=== PATIENT | female | born 1960 | race Two or more races ===

== ENCOUNTER → 2024-09-20 | Outpatient (CLI) | payer MEDICAID, SELFPAY ==
--- NOTE | 2024-09-20 08:00 | XR_ITS ---
EXAMINATION: PET/CT FUSION SKULL TO THIGH EXAM DATE AND TIME: September 20, 2024 0846 hours Comparison June 14, 2024 INDICATIONS: Diagnosis follicular lymphoma grade 1 head and neck, weakly hypermetabolic periaortic lymph nodes, the largest [address] scan June 14, 2024 CTDI:vol (mGy) 6.67 DLP: (mGycm) 609.53 PROCEDURE: 16.6 mCi FDG was administered intravenously To allow for distribution and uptake of radiotracer, the patient was allowed to rest quietly in a shielded room. Imaging was performed on an integrated 16-slice PET/CT scanner, with scanning from the skull base to the mid thigh. Serum blood glucose at the time of the injection was measured 120 mg/dL. CT scanning was performed without oral or intravenous contrast material. FINDINGS: Head and Neck: No hypermetabolic neck lymphadenopathy Chest: Stable non hypermetabolic high left periaortic lymph nodes compared to June 14, 2024 Abdomen and Pelvis: Stable non hypermetabolic para-aortic abdominal lymphadenopathy. Severely scarred atrophic left kidney Musculoskeletal: Marrow uptake is within normal range. IMPRESSION: Stable non hypermetabolic high left periaortic mediastinal lymph nodes compared with June 14, 2024 Stable non hypermetabolic para-aortic abdominal lymphadenopathy compared with June 14, 2024 No interval lymphadenopathy
== END | disposition home or self-care (01) ==
LOC: CDIM 07:42
PROVIDERS: PCP Physician Assistant; Referring Provider Internal Medicine Hematology & Oncology; Visit Provider Internal Medicine Hematology & Oncology
DX: R59.0 Localized enlarged lymph nodes (principal); C82.01 Follicular lymphoma grade I, lymph nodes of head, face, and neck
CPT/HCPCS: 78815; A9552

== ENCOUNTER 2024-10-15 13:36 | Outpatient (RCR) | payer MEDICAID, SELFPAY ==
--- NOTE | 2024-10-29 01:09 | CTCFLWUP_ITS ---
Patient: ALIA BARRIOS : 1960 Page 7 of 8 FOLLOW UP NOTE DATE OF SERVICE: 10/15/2024 NAME: ALIA BARRIOS ACCOUNT: [id number] : 1960 AGE: 63 INTERVAL HISTORY: ONCOLOGY HISTORY: DIAGNOSIS: Follicular lymphoma grade I, nodes of head, face, and neck [ICD10] C82.01 DATE OF DIAGNOSIS: 12/21/2023 STAGE/TNM: Low grade follicular lymphoma TREATMENT HISTORY: Care?Plan Start?Date Cycle Day Intent Rituxan?375?+?Bendamustine?90?Leah 03/28/2024 1 28 Palliative HISTORY OF PRESENT ILLNESS: Alia Barrios is a 63-year-old ENG speaking female with following oncology history . Ms. Barrios started noticing a small lump growing on the right side of the neck about 8 months a go. She also noticed about 22 pound weight loss in the past 3 months. She also complains of occasio nal night sweats. Denies any fevers. Complains of discomfort in the right side of the neck. Does h ave right lower quadrant discomfort. Recently she had fine-needle aspiration on 12/21/2023 02/13/2024: PET/CT scan? 02/14/2024: CT scan of the chest abdomen and pelvis with IV contrast done 02/23/2024: Hepatitis panel? 02/27/2024: Hepatitis B viral load 03/13/2024: Ms. Barrios is started on Entecavir 0.5 mg p.o. daily 03/28/2024: Ms. Barrios received first cycle of Bendamustine and rituximab 06/14/2024: PET/CT scan? 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 allopurinol - 300 mg 1 tab po q daily 2. docusate sodium - 100 mg 1 tab As needed 3. entecavir - 0.5 mg 1 tab Daily 4. hydrocodone-acetaminophen - 5-325 mg 1 tab twice daily every 12 hrs 5. verapamiL - 80 mg 1 tab Daily 6. Vicodin - 5-500 mg 1 tab every 12 hrs 7. Zofran - 8 mg 1 tab Three times a day Medications Last Reconciled by Diana Page MA on 10/15/2024 ALLERGIES: No Known Allergies; No Known Drug Allergies REVIEW OF SYSTEMS: A complete 14-point review of systems was performed and is negative except as noted in interval histo ry. PHYSICAL EXAMINATION: VITAL SIGNS: Temperature?97.6, B/P?140/79, Oxygen?Saturation?98% Weight?148?lbs PAIN: 2 - Mild pain ECOG Performance Status: 0 - Asymptomatic and fully active GENERAL APPEARANCE: Appears well, in no apparent distress, appropriately interactive. HEENT: Normocephalic, no temporal wasting, normal conjunctiva, no scleral icterus, normal hearing, li ps without lesions, neck normal range of motion. CARDIOVASCULAR: Not assessed. PULMONARY: Normal respiratory effort, no respiratory distress or use of accessory muscles, speaking i n full sentences, no tachypnea. EXTREMITIES: No pedal edema or cyanosis. SKIN: Normal skin appearance. NEUROLOGIC: Alert and oriented x4. PSHYCHIATRIC: Appropriate affect, mood normal, behavior normal, intact thought and speech. LABORATORY DATA: I have personally reviewed and interpreted each of the patient?s relevant lab tests, abnormal finding s are below: Date 08/13/24 ??GLUCOSE,RANDOM?(mg/dL) 116?H ??BLOOD?UREA?NITROGEN?(mg/dL) 11 ??CREATININE?(mg/dL) 0.80 ??SODIUM?(mmol/L) 139 ??POTASSIUM?(mmol/L) 3.6 ??CHLORIDE?(mmol/L) 103 ??CrCl?(CandG)?(ml/min) 75.60 ??AST/SGOT?(Unit/L) 38?H ??ALT/SGPT?(Unit/L) 20 ??ALKALINE?PHOSPHATASE?(Unit/L) 117?H ??BILIRUBIN,?TOTAL?(mg/dL) 0.6 ??PROTEIN?TOTAL?(gm/dl) 7.1 ??ALBUMIN,?SERUM?(gm/dl) 4.4 ??GLOBULIN?(gm/dl) 2.7 ??ALBUMIN/GLOBULIN?RATIO 1.6 ??CALCIUM,?SERUM?(mg/dL) 9.4 ??CALCIUM?SERUM?(CORRECTED)?(mg/dL) 9.4 ASSESSMENT/PLAN: Follicular lymphoma Patient was very symptomatic with 30 pound weight loss and lymphadenopathy She will be getting her last dose of Bendamustine rituximab Plan is to continue rituximab every 2 months for total of [address] scan already ordered Advised patient to completed at the end of August and see me in September Sophie is started on Entecavir 0.5 mg p.o. daily (03/13/2024) and advised to continue Ms. Barrios received her first cycle of Bendamustine and rituximab on 03/28/2024. Patient also have hypertension which is well-controlled advised to follow-up with primary care Will proceed with the last chemotherapy and PET CT scan advised after 1 month of chemo.. 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 I spent a total of 50 minutes on this patient?s care on the day of their visit excluding time spent related to any bi lled procedures. This time includes time spent with the patient as well as time spent documenting in the medical record, reviewing patients records and tests, obtaining history, placing orders, communi cating with other healthcare professionals, counseling the patient, family or caregiver, and/or care coordination for the diagnoses above. Electronically Signed by: Carmine Mejia MD T: 1:07 AM CC: PCP: Alyse Cook Referring: Arzaga, Alyse B This document was completed utilizing speech recognition software. Grammatical errors, random word in sertions, pronoun errors, and incomplete sentences are an occasional consequence of this system due t o software limitations, ambient noise, and hardware issues. Any formal questions or concerns about th e content, text or information contained within the body of this dictation should be directly address ed to the provider for clarification.
== END 2024-10-30 23:59 | disposition home or self-care (01) ==
LOC: SCTC 13:36
PROVIDERS: PCP Physician Assistant; Referring Provider Physician Assistant; Visit Provider Internal Medicine Hematology & Oncology
DX: C82.01 Follicular lymphoma grade I, lymph nodes of head, face, and neck (principal)
CPT/HCPCS: 99213; G0463

== ENCOUNTER 2024-11-26 07:36 | Outpatient (RCR) | payer MEDICAID, SELFPAY ==
[2024-11-23 11:55] LABS: Basophils % (Auto) 1 % (0-2.5); Eosinophils # (Auto) 0.1 Thou/mm3 (0.0-0.5); Eosinophils % (Auto) 3 % (0-10); Hematocrit 37.4 % (36.0-46.0); Hemoglobin 12.8 g/dL (12.0-16.0); Immature Granulocytes % (Auto) 7 % (0-0); Immature Granulocytes Auto 0.16 Thou/mm3 (0.00-0.00); Lymphocytes # (Auto) 0.3 Thou/mm3 (1.0-4.8); Lymphocytes % (Auto) 13 % (10-50); Mean Corpuscular HGB Conc 34.2 g/dl (31.0-37.0); Mean Corpuscular Hemoglobin 28.1 pg (25.0-35.0); Mean Corpuscular Volume 82 fL (80-100); Monocytes # (Auto) 0.3 Thou/mm3 (0.0-0.8); Monocytes % (Auto) 14 % (0-12); Neutrophils # (Auto) 1.5 Thou/mm3 (1.8-7.7); Neutrophils % (Auto) 63 % (37-80); Nucleated Red Blood Cell % 0 /100 WBC (0); Platelet Count 140 Thou/mm3 (140-440); RDW Standard Deviation 42.8 fL (36.4-46.3); Red Blood Count 4.55 Miln/mm3 (4.00-5.20)
[2024-11-23 12:15] LABS: Alanine Aminotransferase 30 U/L (10-49); Albumin, Serum 4.6 gm/dL (3.4-4.8); Albumin/Globulin Ratio 1.8 (1.2-2.2); Alkaline Phosphatase 119 U/L (46-116); Anion Gap 11 (7-16); Aspartate Amino Transferase 45 U/L (0-34); BUN/Creatinine Ratio 19 Ratio (12-20); Bilirubin,Total 0.7 mg/dL (0.3-1.2); Blood Urea Nitrogen 15 mg/dL (9-23); Calcium 9.6 mg/dL (8.3-10.6); Calcium (Corrected) 9.6 mg/dL (8.5-10.1); Carbon Dioxide 25.8 mMol/L (20.0-31.0); Chloride 106 mMol/L (98-107); Creatinine (Component) 0.8 mg/dL (0.6-1.3); Globulin 2.5 gm/dL (2.3-3.5); Glucose 121 mg/dL (74-106); Osmolality,Calculated 286 (275-295); Potassium 3.7 mMol/L (3.4-5.1); Sodium 143 mMol/L (136-145); Total Protein 7.1 gm/dL (5.7-8.2); eGFR > 60 See Note
[2024-11-23 12:49] LABS: White Blood Count 2.4 Thou/mm3 (3.6-11.0)
== END 2024-11-30 23:59 | disposition home or self-care (01) ==
LOC: SCTC 07:36
PROVIDERS: PCP Family Medicine; Referring Provider Family Medicine; Visit Provider Internal Medicine Hematology & Oncology
DX: Z51.11 Encounter for antineoplastic chemotherapy (principal); C82.01 Follicular lymphoma grade I, lymph nodes of head, face, and neck; R63.4 Abnormal weight loss; Z68.27 Body mass index [BMI] 27.0-27.9, adult
CPT/HCPCS: 36591; 80053; 85025; 96413; 96415; A4216; J1642; J7050; Q5115; A9270

== ENCOUNTER 2024-12-26 07:35 | Outpatient (RCR) | payer MEDICAID, SELFPAY ==
[2024-12-12 15:48] LABS: Basophils % (Auto) 1 % (0-2.5); Eosinophils # (Auto) 0.1 Thou/mm3 (0.0-0.5); Eosinophils % (Auto) 4 % (0-10); Hematocrit 35.9 % (36.0-46.0); Hemoglobin 12.6 g/dL (12.0-16.0); Immature Granulocytes % (Auto) 1 % (0-0); Immature Granulocytes Auto 0.03 Thou/mm3 (0.00-0.00); Lymphocytes # (Auto) 0.3 Thou/mm3 (1.0-4.8); Lymphocytes % (Auto) 12 % (10-50); Mean Corpuscular HGB Conc 35.1 g/dl (31.0-37.0); Mean Corpuscular Hemoglobin 28.7 pg (25.0-35.0); Mean Corpuscular Volume 82 fL (80-100); Monocytes # (Auto) 0.4 Thou/mm3 (0.0-0.8); Monocytes % (Auto) 13 % (0-12); Neutrophils # (Auto) 1.9 Thou/mm3 (1.8-7.7); Neutrophils % (Auto) 70 % (37-80); Nucleated Red Blood Cell % 0 /100 WBC (0); Platelet Count 147 Thou/mm3 (140-440); RDW Standard Deviation 41.2 fL (36.4-46.3); Red Blood Count 4.39 Miln/mm3 (4.00-5.20)
[2024-12-12 16:08] LABS: Uric Acid 5.2 mg/dL (3.1-7.8)
[2024-12-12 16:16] LABS: Alanine Aminotransferase 28 U/L (10-49); Albumin, Serum 4.1 gm/dL (3.4-4.8); Albumin/Globulin Ratio 1.6 (1.2-2.2); Alkaline Phosphatase 119 U/L (46-116); Anion Gap 6 (7-16); Aspartate Amino Transferase 32 U/L (0-34); BUN/Creatinine Ratio 19 Ratio (12-20); Bilirubin,Total 0.5 mg/dL (0.3-1.2); Blood Urea Nitrogen 17 mg/dL (9-23); Calcium 9.3 mg/dL (8.3-10.6); Calcium (Corrected) 9.3 mg/dL (8.5-10.1); Chloride 107 mMol/L (98-107); Creatinine (Component) 0.9 mg/dL (0.6-1.3); Globulin 2.5 gm/dL (2.3-3.5); Glucose 182 mg/dL (74-106); Osmolality,Calculated 285 (275-295); Potassium 3.9 mMol/L (3.4-5.1); Sodium 140 mMol/L (136-145); Total Protein 6.6 gm/dL (5.7-8.2); eGFR > 60 See Note
[2024-12-12 16:24] LABS: White Blood Count 2.8 Thou/mm3 (3.6-11.0)
--- NOTE | 2024-12-30 15:45 | CTCFLWUP_ITS ---
Patient: ALIA BARRIOS : 1960 Page 7 of 8 FOLLOW UP NOTE DATE OF SERVICE: 12/13/2024 NAME: ALIA BARRIOS ACCOUNT: [id number] : 1960 AGE: 64 INTERVAL HISTORY: ONCOLOGY HISTORY: DIAGNOSIS: Follicular lymphoma grade I, nodes of head, face, and neck [ICD10] C82.01 DATE OF DIAGNOSIS: 12/21/2023 STAGE/TNM: Low grade follicular lymphoma TREATMENT HISTORY: Care?Plan Start?Date Cycle Day Intent Rituxan?375?+?Bendamustine?90?Leah 03/28/2024 1 28 Palliative Rituximab?375mg/m*2?maint?q?2month 11/26/2024 1 60 Maintenance HISTORY OF PRESENT ILLNESS: Alia Barrios is a 64-year-old ENG speaking female with following oncology history. Ms. Barrios started noticing a small lump growing on the right side of the neck about 8 months ago. She also noticed about 22 pound weight loss in the past 3 months. She also complains of occasional night sweats. Denies any fevers. Complains of discomfort in the right side of the neck. Does have right lower quadrant discomfort. Recently she had fine-needle aspiration on 12/21/2023 02/13/2024: PET/CT scan? 02/14/2024: CT scan of the chest abdomen and pelvis with IV contrast done 02/23/2024: Hepatitis panel? 02/27/2024: Hepatitis B viral load 03/13/2024: Ms. Barrios is started on Entecavir 0.5 mg p.o. daily 03/28/2024: Ms. Barrios received first cycle of Bendamustine and rituximab 06/14/2024: PET/CT scan? 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 allopurinol - 300 mg 1 tab po q daily 2. docusate sodium - 100 mg 1 tab As needed 3. entecavir - 0.5 mg 1 tab Daily 4. hydrocodone-acetaminophen - 5-325 mg 1 tab twice daily every 12 hrs 5. verapamiL - 80 mg 1 tab Daily 6. Vicodin - 5-500 mg 1 tab every 12 hrs 7. Zofran - 8 mg 1 tab Three times a day Medications Last Reconciled by Diana Page MA on 12/13/2024 ALLERGIES: No Known Allergies; No Known Drug Allergies REVIEW OF SYSTEMS: A complete 14-point review of systems was performed and is negative except as noted in interval history. PHYSICAL EXAMINATION: VITAL SIGNS: Temperature?98.2, B/P?132/81, Oxygen?Saturation?95% Weight?154?lbs (Change?since?12/12/24:?1?lbs) PAIN: 0 - No pain GENERAL APPEARANCE: Appears well, in no apparent distress, appropriately interactive. HEENT: Normocephalic, no temporal wasting, normal conjunctiva, no scleral icterus, normal hearing, lips without lesions, neck normal range of motion. CARDIOVASCULAR: Not assessed. PULMONARY: Normal respiratory effort, no respiratory distress or use of accessory muscles, speaking in full sentences, no tachypnea. EXTREMITIES: No pedal edema or cyanosis. SKIN: Normal skin appearance. NEUROLOGIC: Alert and oriented x4. PSHYCHIATRIC: Appropriate affect, mood normal, behavior normal, intact thought and speech. LABORATORY DATA: I have personally reviewed and interpreted each of the patient?s relevant lab tests, abnormal findings are below: Date 12/12/24 ??GLUCOSE,RANDOM?(mg/dL) 182?H ??BLOOD?UREA?NITROGEN?(mg/dL) 17 ??CREATININE?(mg/dL) 0.90 ??SODIUM?(mmol/L) 140 ??POTASSIUM?(mmol/L) 3.9 ??CHLORIDE?(mmol/L) 107 ??CrCl?(CandG)?(ml/min) 59.79 ??AST/SGOT?(Unit/L) 32 ??ALT/SGPT?(Unit/L) 28 ??ALKALINE?PHOSPHATASE?(Unit/L) 119?H ??BILIRUBIN,?TOTAL?(mg/dL) 0.5 ??PROTEIN?TOTAL?(gm/dl) 6.6 ??ALBUMIN,?SERUM?(gm/dl) 4.1 ??GLOBULIN?(gm/dl) 2.5 ??ALBUMIN/GLOBULIN?RATIO 1.6 ??CALCIUM,?SERUM?(mg/dL) 9.3 ??CALCIUM?SERUM?(CORRECTED)?(mg/dL) 9.3 ASSESSMENT/PLAN: Follicular lymphoma Patient was very symptomatic with 30 pound weight loss and lymphadenopathy She will be getting her last dose of Bendamustine rituximab Plan is to continue rituximab every 2 months for total of [address] is stable in 2023 Sophie is started on Entecavir 0.5 mg p.o. daily (03/13/2024) and advised to continue MsImer Barrios received her first cycle of Bendamustine and rituximab on 03/28/2024. Patient also have hypertension which is well-controlled advised to follow-up with primary care ORDERS: Cbc cmp Ferritin iron studies ldh and uric acid RETURN TO CLINIC: 4 months BILLING AND COMPLIANCE: I reviewed external records from providers outside my specialty as summarized above. I spent a total of 50 minutes on this patient?s care on the day of their visit excluding time spent related to any billed procedures. This time includes time spent with the patient as well as time spent documenting in the medical record, reviewing patients records and tests, obtaining history, placing orders, communicating with other healthcare professionals, counseling the patient, family or caregiver, and/or care coordination for the diagnoses above. Electronically Signed by: Carmine Mejia MD T: 3:42 PM CC: PCP: Marcos Hatch Referring: Marcos Hatch This document was completed utilizing speech recognition software. Grammatical errors, random word insertions, pronoun errors, and incomplete sentences are an occasional consequence of this system due to software limitations, ambient noise, and hardware issues. Any formal questions or concerns about the content, text or information contained within the body of this dictation should be directly addressed to the provider for clarification.
== END 2024-12-28 23:59 | disposition home or self-care (01) ==
LOC: SCTC 07:35
PROVIDERS: Internal Medicine Hematology & Oncology; PCP Physician Assistant; Referring Provider Family Medicine; Visit Provider Radiology Therapeutic Radiology
DX: C82.01 Follicular lymphoma grade I, lymph nodes of head, face, and neck (principal)
CPT/HCPCS: 36591; 80053; 84550; 85025; 99212; 99213; A4216; J1642; G0463

== ENCOUNTER 2025-01-28 08:00 | Outpatient (RCR) | payer MEDICAID, SELFPAY ==
[2025-01-25 08:40] LABS: Basophils % (Auto) 0 % (0-2.5); Eosinophils # (Auto) 0.1 Thou/mm3 (0.0-0.5); Eosinophils % (Auto) 3 % (0-10); Hematocrit 38.5 % (36.0-46.0); Hemoglobin 13.3 g/dL (12.0-16.0); Immature Granulocytes % (Auto) 2 % (0-0); Immature Granulocytes Auto 0.04 Thou/mm3 (0.00-0.00); Lymphocytes # (Auto) 0.3 Thou/mm3 (1.0-4.8); Lymphocytes % (Auto) 15 % (10-50); Mean Corpuscular HGB Conc 34.5 g/dl (31.0-37.0); Mean Corpuscular Hemoglobin 28.3 pg (25.0-35.0); Mean Corpuscular Volume 82 fL (80-100); Monocytes # (Auto) 0.4 Thou/mm3 (0.0-0.8); Monocytes % (Auto) 16 % (0-12); Neutrophils # (Auto) 1.5 Thou/mm3 (1.8-7.7); Neutrophils % (Auto) 65 % (37-80); Nucleated Red Blood Cell % 0 /100 WBC (0); Platelet Count 148 Thou/mm3 (140-440); RDW Standard Deviation 41.1 fL (36.4-46.3)
[2025-01-25 08:41] LABS: Reticulocyte % (Auto) 1.3 % (0.5-1.5); Reticulocyte Absolute Auto 59.1 Biln/L (25.0-75.0); Reticulocyte Hgb Content 32.2 pg (28.0-35.0)
[2025-01-25 08:42] LABS: White Blood Count 2.3 Thou/mm3 (3.6-11.0)
[2025-01-25 09:10] LABS: Ferritin 48 ng/mL (7.3-270.7); Iron 57 mcg/dL (50-170); Percent Iron Saturation 19 % (20-55); Total Iron Binding Capacity 293 mcg/dL (250-425); Unsaturated Iron Binding 236 (225-295)
[2025-01-25 09:13] LABS: Alanine Aminotransferase 29 U/L (10-49); Albumin, Serum 4.3 gm/dL (3.4-4.8); Albumin/Globulin Ratio 1.7 (1.2-2.2); Alkaline Phosphatase 112 U/L (46-116); Anion Gap 10 (7-16); Aspartate Amino Transferase 36 U/L (0-34); BUN/Creatinine Ratio 15 Ratio (12-20); Bilirubin,Total 0.8 mg/dL (0.3-1.2); Blood Urea Nitrogen 15 mg/dL (9-23); Calcium 9.4 mg/dL (8.3-10.6); Calcium (Corrected) 9.4 mg/dL (8.5-10.1); Chloride 106 mMol/L (98-107); Globulin 2.5 gm/dL (2.3-3.5); Glucose 136 mg/dL (74-106); LDH (Lactate Dehydrogenase) 240 U/L (120-246); Osmolality,Calculated 285 (275-295); Sodium 142 mMol/L (136-145); Total Protein 6.8 gm/dL (5.7-8.2); eGFR > 60 See Note
[2025-01-25 11:41] LABS: Folate 18.58 ng/mL (>5.38); Vitamin B12 839 pg/mL (211-911)
== END 2025-01-28 23:59 | disposition home or self-care (01) ==
LOC: SCTC 08:00
PROVIDERS: Internal Medicine Hematology & Oncology; PCP Physician Assistant; Referring Provider Radiology Therapeutic Radiology; Visit Provider Radiology Therapeutic Radiology
DX: Z51.11 Encounter for antineoplastic chemotherapy (principal); C82.01 Follicular lymphoma grade I, lymph nodes of head, face, and neck; I10 Essential (primary) hypertension
CPT/HCPCS: 36591; 80053; 82607; 82728; 82746; 83540; 83550; 83615; 85025; 85046; 96374; 96375; 96413; 96415; A4216; J1200; J1642; J7050; Q5115; A9270

== ENCOUNTER → 2025-03-07 | Outpatient (CLI) | payer MEDICAID, SELFPAY ==
--- NOTE | 2025-03-07 14:30 | ECHO_ITS ---
Transthoracic Echo Report Ht (in): 61 Wt (lb): 142 Exam Location: Echo Lab Status: Preadmit Transmission Technician: Marshall H Indications: Procedure Performed: BP: / HR: MEASUREMENTS (Male / Female) Normal Values 2D ECHO LV Diastolic Diameter PLAX 4.1 cm 4.2 - 5.9 / 3.9 - 5.3 cm LV Systolic Diameter PLAX 2.4 cm IVS Diastolic Thickness 0.9 cm 0.6 - 1.0 / 0.6 - 0.9 cm LVPW Diastolic Thickness 1.0 cm 0.6 - 1.0 / 0.6 - 0.9 cm LV Relative Wall Thickness 0.5 LVOT Diameter 1.6 cm Aortic Root Diameter 3.2 cm LA Systolic Diameter LX 3.2 cm 3.0 - 4.0 / 2.7 - 3.8 cm LA Volume Index 26.8 cm?/m? 16 - 28 cm?/m? Ascending Aorta Diameter 3.2 cm DOPPLER AV Peak Velocity 110.0 cm/s AV Peak Gradient 4.8 mmHg AV Mean Gradient 3.0 mmHg AV Velocity Time Integral 23.4 cm LVOT Peak Velocity 117.0 cm/s LVOT Peak Gradient 5.5 mmHg LVOT Velocity Time Integral 35.3 cm AV Area Cont Eq vti 3.0 cm? AV Area Cont Eq pk 2.1 cm? MV Area PHT 4.5 cm? Mitral E Point Velocity 64.9 cm/s Mitral A Point Velocity 63.9 cm/s Mitral E to A Ratio 1.0 LV E' Lateral Velocity 7.4 cm/s Mitral E to LV E' Lateral Ratio 8.7 LV E' Septal Velocity 9.3 cm/s Mitral E to LV E' Septal Ratio 7.0 TR Peak Velocity 231.0 cm/s TR Peak Gradient 21.3 mmHg PV Peak Velocity 128.0 cm/s PV Peak Gradient 6.6 mmHg RVOT Peak Velocity 68.0 cm/s FINDINGS Left Ventricle Normal left ventricular size, wall thickness, systolic function with no obvious regional wall motion abnormalities. There is grade II diastolic dysfunction of the left ventricle (pseudonormal filling pattern). The left ventricular ejection fraction is normal, estimated at 60-65%. Right Ventricle The right ventricle is normal in size and systolic function. The estimated right ventricular systolic pressure, 30 mmHg. Left Atrium The left atrium is normal by two-dimensional, color flow and Doppler imaging with no structural abnormalities, no thrombus formation present. Right Atrium The right atrium is normal by two-dimensional imaging, color flow and Doppler imaging with no structural abnormalities, no thrombus formation present. Atrial Septum The interatrial septum appears normal with no evidence of a shunt. Aorta The aorta is normal by two-dimensional, color flow and Doppler interrogation. Mitral Valve Trace to mild mitral regurgitation. Mild mitral annular calcification. Aortic Valve The aortic valve is trileaflet and normal by two-dimensional, color flow and Doppler interrogation. There is no significant aortic valve regurgitation. Tricuspid Valve There is mild tricuspid valve regurgitation. Pulmonic Valve Trivial pulmonic valve regurgitation. Vessels The pulmonary artery appears normal. The inferior vena cava pulmonary and hepatic veins appear normal. Pericardium The pericardium is normal by two-dimensional imaging. There is no significant pericardial effusion. 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 Mild LVH. Upper normal RV size with normal RV function. Mildly elevated RVSP at 35 mmHg Mild MR & TR Haroon Escalante (Electronically Signed) Final Date: 08 Mar 2025 03:40
== END | disposition home or self-care (01) ==
PROVIDERS: PCP Physician Assistant; Referring Provider Internal Medicine Hematology & Oncology; Visit Provider Internal Medicine Hematology & Oncology
DX: I08.1 Rheumatic disorders of both mitral and tricuspid valves (principal); C82.01 Follicular lymphoma grade I, lymph nodes of head, face, and neck
CPT/HCPCS: 93306

== ENCOUNTER 2025-03-29 08:31 | Outpatient (RCR) | payer MEDICAID, SELFPAY ==
[2025-03-29 09:16] LABS: Basophils % (Auto) 1 % (0-2.5); Eosinophils # (Auto) 0.1 Thou/mm3 (0.0-0.5); Eosinophils % (Auto) 2 % (0-10); Hematocrit 35.9 % (36.0-46.0); Hemoglobin 12.7 g/dL (12.0-16.0); Immature Granulocytes % (Auto) 2 % (0-0); Immature Granulocytes Auto 0.06 Thou/mm3 (0.00-0.00); Lymphocytes # (Auto) 0.3 Thou/mm3 (1.0-4.8); Lymphocytes % (Auto) 8 % (10-50); Mean Corpuscular HGB Conc 35.4 g/dl (31.0-37.0); Mean Corpuscular Hemoglobin 29.1 pg (25.0-35.0); Mean Corpuscular Volume 82 fL (80-100); Monocytes # (Auto) 0.3 Thou/mm3 (0.0-0.8); Monocytes % (Auto) 10 % (0-12); Neutrophils # (Auto) 2.4 Thou/mm3 (1.8-7.7); Neutrophils % (Auto) 77 % (37-80); Nucleated Red Blood Cell % 0 /100 WBC (0); Platelet Count 195 Thou/mm3 (140-440); RDW Standard Deviation 40.7 fL (36.4-46.3); Red Blood Count 4.37 Miln/mm3 (4.00-5.20)
[2025-03-29 09:36] LABS: Alanine Aminotransferase 16 U/L (10-49); Albumin, Serum 4.2 gm/dL (3.4-4.8); Albumin/Globulin Ratio 1.9 (1.2-2.2); Alkaline Phosphatase 75 U/L (46-116); Anion Gap 9 (7-16); Aspartate Amino Transferase 28 U/L (0-34); BUN/Creatinine Ratio 11 Ratio (12-20); Bilirubin,Total 0.7 mg/dL (0.3-1.2); Blood Urea Nitrogen 9 mg/dL (9-23); Calcium 8.7 mg/dL (8.3-10.6); Calcium (Corrected) 8.7 mg/dL (8.5-10.1); Carbon Dioxide 28.6 mMol/L (20.0-31.0); Chloride 107 mMol/L (98-107); Creatinine (Component) 0.8 mg/dL (0.6-1.3); Globulin 2.2 gm/dL (2.3-3.5); Glucose 126 mg/dL (74-106); Osmolality,Calculated 289 (275-295); Potassium 3.8 mMol/L (3.4-5.1); Sodium 145 mMol/L (136-145); Total Protein 6.4 gm/dL (5.7-8.2); Uric Acid 5.6 mg/dL (3.1-7.8); eGFR > 60 See Note
== END 2025-03-30 23:59 | disposition home or self-care (01) ==
LOC: SCTC 08:31
PROVIDERS: Internal Medicine Hematology & Oncology; PCP Physician Assistant; Referring Provider Physician Assistant; Visit Provider Radiology Therapeutic Radiology
DX: C82.01 Follicular lymphoma grade I, lymph nodes of head, face, and neck (principal)
CPT/HCPCS: 36591; 80053; 83615; 84550; 85025; A4216; J1642

== ENCOUNTER 2025-04-18 13:19 | Outpatient (RCR) | payer MEDICAID, SELFPAY ==
[2025-04-17 09:50] LABS: Basophils % (Auto) 1 % (0-2.5); Eosinophils # (Auto) 0.1 Thou/mm3 (0.0-0.5); Eosinophils % (Auto) 2 % (0-10); Hematocrit 36.7 % (36.0-46.0); Hemoglobin 12.6 g/dL (12.0-16.0); Immature Granulocytes % (Auto) 2 % (0-0); Immature Granulocytes Auto 0.04 Thou/mm3 (0.00-0.00); Lymphocytes # (Auto) 0.3 Thou/mm3 (1.0-4.8); Lymphocytes % (Auto) 13 % (10-50); Mean Corpuscular HGB Conc 34.3 g/dl (31.0-37.0); Mean Corpuscular Volume 85 fL (80-100); Monocytes # (Auto) 0.4 Thou/mm3 (0.0-0.8); Monocytes % (Auto) 14 % (0-12); Neutrophils # (Auto) 1.7 Thou/mm3 (1.8-7.7); Neutrophils % (Auto) 68 % (37-80); Nucleated Red Blood Cell % 0 /100 WBC (0); Platelet Count 157 Thou/mm3 (140-440); RDW Standard Deviation 42.9 fL (36.4-46.3); Red Blood Count 4.34 Miln/mm3 (4.00-5.20)
[2025-04-17 09:59] LABS: White Blood Count 2.5 Thou/mm3 (3.6-11.0)
[2025-04-17 10:12] LABS: Alanine Aminotransferase 16 U/L (10-49); Albumin, Serum 4.1 gm/dL (3.4-4.8); Albumin/Globulin Ratio 1.9 (1.2-2.2); Alkaline Phosphatase 77 U/L (46-116); Anion Gap 7 (7-16); Aspartate Amino Transferase 27 U/L (0-34); BUN/Creatinine Ratio 12 Ratio (12-20); Bilirubin,Total 0.7 mg/dL (0.3-1.2); Blood Urea Nitrogen 11 mg/dL (9-23); Calcium 9.1 mg/dL (8.3-10.6); Calcium (Corrected) 9.1 mg/dL (8.5-10.1); Carbon Dioxide 28.4 mMol/L (20.0-31.0); Chloride 108 mMol/L (98-107); Creatinine (Component) 0.9 mg/dL (0.6-1.3); Globulin 2.2 gm/dL (2.3-3.5); Glucose 116 mg/dL (74-106); Osmolality,Calculated 285 (275-295); Sodium 143 mMol/L (136-145); Total Protein 6.3 gm/dL (5.7-8.2); eGFR > 60 See Note
--- NOTE | 2025-04-18 15:19 | CTCFLWUP_ITS ---
Patient: ALIA BARRIOS : 1960 Page 2 of 2 FOLLOW UP NOTE DATE OF SERVICE: 04/18/2025 NAME: ALIA BARRIOS ACCOUNT: [id number] : 1960 AGE: 64 INTERVAL HISTORY: Subjective: Chief Complaint Routine follow-up for cancer treatment History of Present Illness Alia is a patient with a history of cancer who is currently undergoing rituximab treatment. She presents for a follow-up visit with no new complaints. The patient denies any new bleeding, bruising, or swelling in the neck. She reports no adverse reactions or problems with her rituximab treatments. Alia received her last rituximab treatment on April 01, which was her third treatment out of a planned total of 12. She is scheduled for blood work on May 31 and her next rituximab treatment on June 03. The patient continues to take tequivir for her liver. Overall, Alia reports feeling well with no new health concerns since her last visit. Medications and Supplements - Rituximab - Received on April 01. Third treatment out of planned 12. - No reported reactions or problems. - Administered every 2 months. - Tequivir - For liver. Review of Systems Hematological/Lymphatic: Negative for new bleeding or bruising. HEENT: Negative for new swelling in the neck. Objective: Laboratory, Imaging, and Diagnostic Test Results - Imaging: - Scan of Ryan: Normal functioning - Previous results: - Rituximab treatment: Administered on April 01, 2025 (3rd treatment) ONCOLOGY HISTORY: DIAGNOSIS: Follicular lymphoma grade I, nodes of head, face, and neck [ICD10] C82.01 DATE OF DIAGNOSIS: 12/21/2023 STAGE/TNM: Low grade follicular lymphoma TREATMENT HISTORY: Care?Plan Start?Date Cycle Day Intent Rituxan?375?+?Bendamustine?90?Leah 03/28/2024 1 28 Palliative Rituximab?375mg/m*2?maint?q?2month 11/26/2024 1 60 Maintenance HISTORY OF PRESENT ILLNESS: Alia Barrios is a 64-year-old ENG speaking female with following oncology history. Ms. Barrios started noticing a small lump growing on the right side of the neck about 8 months ago. She also noticed about 22 pound weight loss in the past 3 months. She also complains of occasional night sweats. Denies any fevers. Complains of discomfort in the right side of the neck. Does have right lower quadrant discomfort. Recently she had fine-needle aspiration on 12/21/2023 02/13/2024: PET/CT scan? 02/14/2024: CT scan of the chest abdomen and pelvis with IV contrast done 02/23/2024: Hepatitis panel? 02/27/2024: Hepatitis B viral load 03/13/2024: Ms. Barrios is started on Entecavir 0.5 mg p.o. daily 03/28/2024: Ms. Barrios received first cycle of Bendamustine and rituximab 06/14/2024: PET/CT scan? 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 allopurinol - 300 mg 1 tab po q daily 2. docusate sodium - 100 mg 1 tab As needed 3. entecavir - 0.5 mg 1 tab Daily 4. hydrocodone-acetaminophen - 5-325 mg 1 tab twice a day 5. simvastatin - 40 mg 1 tab Daily 6. verapamiL - 80 mg 1 tab Daily 7. Vicodin - 5-500 mg 1 tab every 12 hrs 8. Zofran - 8 mg 1 tab Three times a day Medications Last Reconciled by Diana Page MA on 04/18/2025 ALLERGIES: No Known Allergies; No Known Drug Allergies REVIEW OF SYSTEMS: A complete 14-point review of systems was performed and is negative except as noted in interval history. PHYSICAL EXAMINATION: VITAL SIGNS: PAIN: 0 - No pain ECOG Performance Status: 0 - Asymptomatic and fully active GENERAL APPEARANCE: Appears well, in no apparent distress, appropriately interactive. HEENT: Normocephalic, no temporal wasting, normal conjunctiva, no scleral icterus, normal hearing, lips without lesions, neck normal range of motion. CARDIOVASCULAR: Not assessed. PULMONARY: Normal respiratory effort, no respiratory distress or use of accessory muscles, speaking in full sentences, no tachypnea. EXTREMITIES: No pedal edema or cyanosis. SKIN: Normal skin appearance. NEUROLOGIC: Alert and oriented x4. PSHYCHIATRIC: Appropriate affect, mood normal, behavior normal, intact thought and speech. LABORATORY DATA: I have personally reviewed and interpreted each of the patient?s relevant lab tests, abnormal findings are below: Date 03/29/25 04/17/25 ??WHITE?BLOOD?COUNT?(Thou/mm3) 3.0?L 2.5?L ??RED?BLOOD?COUNT?(Miln/mm3) 4.37 4.34 ??HEMOGLOBIN?(gm/dl) 12.7 12.6 ??HEMATOCRIT?(%) 35.9?L 36.7 ??PLATELET?COUNT?(Thou/mm3) 195 157 ??NEUTROPHILS?%,?AUTO?(%) 77 68 ??LYMPH?%,?AUTO?(%) 8?L 13 ??NEUTROPHILS,?AUTO?(Thou/mm3) 2.4 1.7?L ??GLUCOSE,RANDOM?(mg/dL) 126?H 116?H ??BLOOD?UREA?NITROGEN?(mg/dL) 9 11 ??CREATININE?(mg/dL) 0.80 0.90 ??SODIUM?(mmol/L) 145 143 ??POTASSIUM?(mmol/L) 3.8 4.0 ??CHLORIDE?(mmol/L) 107 108?H ??CrCl?(CandG)?(ml/min) 75.25 67.62 ??AST/SGOT?(Unit/L) 28 27 ??ALT/SGPT?(Unit/L) 16 16 ??ALKALINE?PHOSPHATASE?(Unit/L) 75 77 ??BILIRUBIN,?TOTAL?(mg/dL) 0.7 0.7 ??PROTEIN?TOTAL?(gm/dl) 6.4 6.3 ??ALBUMIN,?SERUM?(gm/dl) 4.2 4.1 ??GLOBULIN?(gm/dl) 2.2?L 2.2?L ??ALBUMIN/GLOBULIN?RATIO 1.9 1.9 ??CALCIUM,?SERUM?(mg/dL) 8.7 9.1 ??CALCIUM?SERUM?(CORRECTED)?(mg/dL) 8.7 9.1 ASSESSMENT/PLAN: Assessment and Plan: Alia is a patient with a history of cancer undergoing rituximab treatment, presenting for follow-up with no new complaints. Follicular lymphoma Patient was very symptomatic with 30 pound weight loss and lymphadenopathy She will be getting her last dose of Bendamustine rituximab Plan is to continue rituximab every 2 months for total of [address] is stable in 2023 Patient is currently undergoing rituximab treatment for cancer. She received her third treatment on April 01, 2025. The treatment plan includes a total of 12 cycles. Patient reports no new bleeding, bruising, or swelling in the neck. Patient tolerates the treatment well with no reported adverse reactions. Plan: - Continue rituximab treatment as scheduled - Next blood draw scheduled for May 31, 2025 - Next rituximab treatment scheduled for June 03, 2025 - Recommend COVID and flu vaccinations - Follow-up appointment in 4 months #2 chronic hepatitis Sophie is started on Entecavir 0.5 mg p.o. daily (03/13/2024) and advised to continue #3 hypertension Patient also have hypertension which is well-controlled advised to follow-up with primary care ORDERS: Order # Description [id number] Comprehensive Metabolic Panel - 12 + CBC with Auto Diff + Follow Up 4 Month + Uric Acid, Serum [id number] Lactate Dehydrogenase (LDH) [id number] Follow Up Appointment [id number] Follow Up Appointment [id number] Follow Up Appointment [id number] Follow Up Appointment [id number] Follow Up Appointment [id number] Follow Up Appointment [id number] Follow Up Appointment [id number] Follow Up Appointment [id number] Follow Up Appointment [id number] Follow Up Appointment RETURN TO CLINIC: BILLING AND COMPLIANCE: I reviewed external records from providers outside my specialty as summarized above. I spent a total of 50 minutes on this patient?s care on the day of their visit excluding time spent related to any billed procedures. This time includes time spent with the patient as well as time spent documenting in the medical record, reviewing patients records and tests, obtaining history, placing orders, communicating with other healthcare professionals, counseling the patient, family or caregiver, and/or care coordination for the diagnoses above. Electronically Signed by: Carmine Mejia MD T: 3:17 PM CC: PCP: Alyse Cook Referring: Alyse Cook This document was completed utilizing speech recognition software. Grammatical errors, random word insertions, pronoun errors, and incomplete sentences are an occasional consequence of this system due to software limitations, ambient noise, and hardware issues. Any formal questions or concerns about the content, text or information contained within the body of this dictation should be directly addressed to the provider for clarification.
== END 2025-04-29 23:59 | disposition home or self-care (01) ==
LOC: SCTC 13:19
PROVIDERS: PCP Physician Assistant; Referring Provider Physician Assistant; Visit Provider Internal Medicine Hematology & Oncology
DX: Z51.11 Encounter for antineoplastic chemotherapy (principal); C82.01 Follicular lymphoma grade I, lymph nodes of head, face, and neck; K73.9 Chronic hepatitis, unspecified; I10 Essential (primary) hypertension
CPT/HCPCS: 36591; 80053; 85025; 96375; 96413; 96415; 99212; A4216; J1200; J1642; J7050; Q5115; A9270; G0463

== ENCOUNTER → 2025-07-10 | Outpatient (CLI) | payer MEDICAID, SELFPAY ==
--- NOTE | 2025-07-10 10:30 | ECHO_ITS ---
Transthoracic Echo Report Ht (in): 61 Wt (lb): 150 Exam Location: Echo Lab Status: Preadmit Mechanical Maintenance: Teresa Bee Indications: Procedure Performed: BP: 154 / 75 HR: 68 MEASUREMENTS (Male / Female) Normal Values 2D ECHO LV Diastolic Diameter PLAX 3.6 cm 4.2 - 5.9 / 3.9 - 5.3 cm LV Systolic Diameter PLAX 2.4 cm IVS Diastolic Thickness 0.8 cm 0.6 - 1.0 / 0.6 - 0.9 cm LVPW Diastolic Thickness 1.3 cm 0.6 - 1.0 / 0.6 - 0.9 cm LV Relative Wall Thickness 0.6 LA Volume Index 30.6 cm?/m? 16 - 28 cm?/m? Ascending Aorta Diameter 3.3 cm M-MODE AV Cusp Separation MM 1.5 cm DOPPLER AV Peak Velocity 122.0 cm/s AV Peak Gradient 6.0 mmHg AV Mean Gradient 3.0 mmHg AV Velocity Time Integral 24.0 cm LVOT Peak Velocity 108.0 cm/s LVOT Peak Gradient 4.7 mmHg LVOT Velocity Time Integral 22.9 cm MV Area PHT 3.7 cm? Mitral E Point Velocity 66.0 cm/s Mitral A Point Velocity 82.9 cm/s Mitral E to A Ratio 0.8 LV E' Lateral Velocity 6.7 cm/s Mitral E to LV E' Lateral Ratio 9.8 LV E' Septal Velocity 4.8 cm/s Mitral E to LV E' Septal Ratio 13.8 TR Peak Velocity 126.5 cm/s TR Peak Gradient 6.4 mmHg PV Peak Velocity 103.0 cm/s PV Peak Gradient 4.2 mmHg FINDINGS Left Ventricle Normal left ventricular size, wall thickness, systolic function with no obvious regional wall motion abnormalities. There is grade II diastolic dysfunction of the left ventricle (pseudonormal filling pattern). The ejection fraction is visually estimated at 60-65 %. Right Ventricle The right ventricle is normal in size and systolic function. Left Atrium The left atrium is normal by two-dimensional, color flow and Doppler imaging with no structural abnormalities, no thrombus formation present. Right Atrium The right atrium is normal by two-dimensional imaging, color flow and Doppler imaging with no structural abnormalities, no thrombus formation present. Atrial Septum The interatrial septum appears normal with no evidence of a shunt. Aorta The aorta is normal by two-dimensional, color flow and Doppler interrogation. Mitral Valve The mitral valve is normal by two-dimensional, color flow and Doppler interrogation. Trace mitral regurgitation. Aortic Valve The aortic valve is trileaflet and normal by two-dimensional, color flow and Doppler interrogation. There is no significant aortic valve regurgitation. Tricuspid Valve The tricuspid valve is normal by two-dimensional, color flow and Doppler interrogation. There is trace tricuspid valve regurgitation. Pulmonic Valve The pulmonic valve is not well visualized. Trivial pulmonic valve regurgitation. Vessels The pulmonary artery appears normal. The inferior vena cava pulmonary and hepatic veins appear normal. Pericardium The pericardium is normal by two-dimensional imaging. There is no significant pericardial effusion. CONCLUSIONS Indication: Follicular lymphoma grade I, lymph nodes of head,face Normal left ventricular size and function. Approximate ejection fraction is 60- 65%. Grade II diastolic dysfunction The right ventricle is normal in size and systolic function. Trace mitral, tricuspid and pulmonic valve regurgitation noted. Kitty Valero (Electronically Signed) Final Date: 11 July 2025 12:16
== END | disposition home or self-care (01) ==
PROVIDERS: PCP Physician Assistant; Referring Provider Internal Medicine Hematology & Oncology; Visit Provider Internal Medicine Hematology & Oncology
DX: I08.1 Rheumatic disorders of both mitral and tricuspid valves (principal); I37.1 Nonrheumatic pulmonary valve insufficiency; C82.01 Follicular lymphoma grade I, lymph nodes of head, face, and neck
CPT/HCPCS: 93306

== ENCOUNTER → 2025-08-06 | Outpatient (CLI) | payer MEDICAID, SELFPAY ==
--- NOTE | 2025-08-06 08:00 | XR_ITS ---
Examination: Screening digital mammography, bilateral Computer aided detection 3-D breast Tomosynthesis, bilateral Date and time of exam: August 06, 2025, 0744 hours, compared to mammograms dating to November 09, 2019. Indication: Screening Technique: Nonmagnified MLO, CC views of the breasts to been obtained, reconstructed from 3-D Tomosynthesis images. R2 computer aided detection program utilized for evaluation of suspicious masses and/or abnormal calcifications. 3-D Tomosynthesis images obtained. Findings: Scattered areas of fibroglandular density. 13 mm nodule compared to 10 mm on November 09, 2019, upper outer quadrant right breast and 13 mm nodule upper outer right breast posterior depth Impression: BI-RADS Category 0: Incomplete: Need additional imaging evaluation Recommend follow-up spot tomographic views upper outer quadrant right breast to assess 2 breast nodules with right breast sonography follow-up.
== END | disposition home or self-care (01) ==
LOC: CDIM 07:25
PROVIDERS: PCP Physician Assistant; Referring Provider Physician Assistant; Visit Provider Physician Assistant
DX: Z12.31 Encounter for screening mammogram for malignant neoplasm of breast (principal); R92.8 Other abnormal and inconclusive findings on diagnostic imaging of breast; N63.11 Unspecified lump in the right breast, upper outer quadrant
CPT/HCPCS: 77063; 77067

== ENCOUNTER 2025-08-22 13:07 | Outpatient (RCR) | payer MEDICAID, SELFPAY ==
[2025-08-02 11:03] LABS: Basophils # (Auto) 0.0 Thou/mm3 (0.0-0.2); Basophils % (Auto) 1 % (0-2.5); Eosinophils # (Auto) 0.1 Thou/mm3 (0.0-0.5); Eosinophils % (Auto) 4 % (0-10); Hematocrit 40.4 % (36.0-46.0); Hemoglobin 13.7 g/dL (12.0-16.0); Immature Granulocytes Auto 0.04 Thou/mm3 (0.00-0.00); Lymphocytes # (Auto) 0.6 Thou/mm3 (1.0-4.8); Lymphocytes % (Auto) 22 % (10-50); Mean Corpuscular HGB Conc 33.9 g/dl (31.0-37.0); Mean Corpuscular Hemoglobin 29.0 pg (25.0-35.0); Mean Corpuscular Volume 86 fL (80-100); Monocytes # (Auto) 0.3 Thou/mm3 (0.0-0.8); Monocytes % (Auto) 13 % (0-12); Neutrophils # (Auto) 1.5 Thou/mm3 (1.8-7.7); Neutrophils % (Auto) 59 % (37-80); Nucleated Red Blood Cell # 0.00 Thou/mm3 (0.00-0.00); Nucleated Red Blood Cell % 0 /100 WBC (0); Platelet Count 173 Thou/mm3 (140-440); RDW Standard Deviation 41.1 fL (36.4-46.3); Red Blood Count 4.72 Miln/mm3 (4.00-5.20); White Blood Count 2.6 Thou/mm3 (3.6-11.0)
[2025-08-02 11:23] LABS: Alanine Aminotransferase 37 U/L (10-49); Albumin, Serum 4.4 gm/dL (3.4-4.8); Albumin/Globulin Ratio 2.0 (1.2-2.2); Alkaline Phosphatase 99 U/L (46-116); Anion Gap 7 (7-16); Aspartate Amino Transferase 45 U/L (0-34); BUN/Creatinine Ratio 13 Ratio (12-20); Bilirubin,Total 1.0 mg/dL (0.3-1.2); Blood Urea Nitrogen 12 mg/dL (9-23); Calcium 9.4 mg/dL (8.3-10.6); Calcium (Corrected) 9.4 mg/dL (8.5-10.1); Carbon Dioxide 28.7 mMol/L (20.0-31.0); Chloride 107 mMol/L (98-107); Creatinine (Component) 0.9 mg/dL (0.6-1.3); Globulin 2.2 gm/dL (2.3-3.5); Glucose 122 mg/dL (74-106); LDH (Lactate Dehydrogenase) 275 U/L (120-246); Osmolality,Calculated 285 (275-295); Potassium 3.8 mMol/L (3.4-5.1); Sodium 143 mMol/L (136-145); Total Protein 6.6 gm/dL (5.7-8.2); Uric Acid 6.8 mg/dL (3.1-7.8); eGFR > 60 See Note
--- NOTE | 2025-08-22 14:51 | CTCFLWUP_ITS ---
Patient: ALIA BARRIOS : 1960 Page 7 of 9 FOLLOW UP NOTE DATE OF SERVICE: 08/22/2025 NAME: ALIA BARRIOS ACCOUNT: [id number] : 1960 AGE: 64 INTERVAL HISTORY: Subjective: Chief Complaint Routine follow-up for cancer treatment. Patient do not have any complaints History of Present Illness Alia is a patient with a follicular lymphoma undergoing rituximab treatment. She presents for a follow-up visit with no new complaints. The patient denies any new bleeding, bruising, or swelling in the neck. She reports no adverse reactions or problems with her rituximab treatments. The patient continues to take tequivir for her liver. Overall, Alia reports feeling well with no new health concerns since her last visit. Medications and Supplements - Rituximab - Received on April 01. Third treatment out of planned 12. - No reported reactions or problems. - Administered every 2 months. - Tequivir - For liver. Review of Systems Hematological/Lymphatic: Negative for new bleeding or bruising. HEENT: Negative for new swelling in the neck. Objective: Laboratory, Imaging, and Diagnostic Test Results - Imaging: - Scan of Ryan: Normal functioning - Previous results: - Rituximab treatment: Administered on April 01, 2025 (3rd treatment) ONCOLOGY HISTORY: DIAGNOSIS: Follicular lymphoma grade I, nodes of head, face, and neck [ICD10] C82.01 DATE OF DIAGNOSIS: 12/21/2023 STAGE/TNM: Low grade follicular lymphoma TREATMENT HISTORY: Care?Plan Start?Date Cycle Day Intent Rituxan?375?+?Bendamustine?90?Leah 03/28/2024 1 28 Palliative Rituximab?375mg/m*2?maint?q?2month 11/26/2024 1 60 Maintenance HISTORY OF PRESENT ILLNESS: Alia Barrios is a 64-year-old ENG speaking female with following oncology history. Ms. Barrios started noticing a small lump growing on the right side of the neck about 8 months ago. She also noticed about 22 pound weight loss in the past 3 months. She also complains of occasional night sweats. Denies any fevers. Complains of discomfort in the right side of the neck. Does have right lower quadrant discomfort. Recently she had fine-needle aspiration on 12/21/2023 02/13/2024: PET/CT scan? 02/14/2024: CT scan of the chest abdomen and pelvis with IV contrast done 02/23/2024: Hepatitis panel? 02/27/2024: Hepatitis B viral load 03/13/2024: Ms. Barrios is started on Entecavir 0.5 mg p.o. daily 03/28/2024: Ms. Barrios received first cycle of Bendamustine and rituximab 06/14/2024: PET/CT scan? 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 allopurinol - 300 mg 1 tab po q daily 2. docusate sodium - 100 mg 1 tab As needed 3. entecavir - 0.5 mg 1 tab Daily 4. hydrocodone-acetaminophen - 5-325 mg 1 tab twice a day 5. simvastatin - 40 mg 1 tab Daily 6. verapamiL - 80 mg 1 tab Daily 7. Vicodin - 5-500 mg 1 tab every 12 hrs 8. Zofran - 8 mg 1 tab Three times a day Medications Last Reconciled by Clarita Desouza MD on 08/22/2025 ALLERGIES: No Known Allergies; No Known Drug Allergies REVIEW OF SYSTEMS: A complete 14-point review of systems was performed and is negative except as noted in interval history. PHYSICAL EXAMINATION: VITAL SIGNS: Temperature?97.8, B/P?167/76, Oxygen?Saturation?98% Weight?148?lbs (Change?since?08/05/25:?-1.2?lbs) PAIN: 0 - No pain GENERAL APPEARANCE: Appears well, in no apparent distress, appropriately interactive. HEENT: Normocephalic, no temporal wasting, normal conjunctiva, no scleral icterus, normal hearing, lips without lesions, neck normal range of motion. CARDIOVASCULAR: Not assessed. PULMONARY: Normal respiratory effort, no respiratory distress or use of accessory muscles, speaking in full sentences, no tachypnea. EXTREMITIES: No pedal edema or cyanosis. SKIN: Normal skin appearance. NEUROLOGIC: Alert and oriented x4. PSHYCHIATRIC: Appropriate affect, mood normal, behavior normal, intact thought and speech. LABORATORY DATA: I have personally reviewed and interpreted each of the patient?s relevant lab tests, abnormal findings are below: Date 05/31/25 08/02/25 ??WHITE?BLOOD?COUNT?(Thou/mm3) ? 2.6?L ??RED?BLOOD?COUNT?(Miln/mm3) ? 4.72 ??HEMOGLOBIN?(gm/dl) ? 13.7 ??HEMATOCRIT?(%) ? 40.4 ??PLATELET?COUNT?(Thou/mm3) ? 173 ??NEUTROPHILS?%,?AUTO?(%) ? 59 ??LYMPH?%,?AUTO?(%) ? 22 ??NEUTROPHILS,?AUTO?(Thou/mm3) ? 1.5?L ??GLUCOSE,RANDOM?(mg/dL) 122?H 122?H ??BLOOD?UREA?NITROGEN?(mg/dL) 15 12 ??CREATININE?(mg/dL) 1.10 0.90 ??SODIUM?(mmol/L) 142 143 ??POTASSIUM?(mmol/L) 3.9 3.8 ??CHLORIDE?(mmol/L) 103 107 ??CrCl?(CandG)?(ml/min) 53.90 67.99 ??AST/SGOT?(Unit/L) 32 45?H ??ALT/SGPT?(Unit/L) 19 37 ??ALKALINE?PHOSPHATASE?(Unit/L) 91 99 ??BILIRUBIN,?TOTAL?(mg/dL) 0.4 1.0 ??PROTEIN?TOTAL?(gm/dl) 6.8 6.6 ??ALBUMIN,?SERUM?(gm/dl) 4.3 4.4 ??GLOBULIN?(gm/dl) 2.5 2.2?L ??ALBUMIN/GLOBULIN?RATIO 1.7 2.0 ??CALCIUM,?SERUM?(mg/dL) 9.5 9.4 ??CALCIUM?SERUM?(CORRECTED)?(mg/dL) 9.5 9.4 ??LDH,?TOTAL?(Unit/L) ? 275?H ASSESSMENT/PLAN: Follicular lymphoma Patient was very symptomatic with 30 pound weight loss and lymphadenopathy at the time of diagnosis. Patient's stable weight is at 145 pounds. Patient completed chemotherapy with Bendamustine rituximab She is on rituximab every 2 months for total of [address] is stable in 2023 Patient's labs are stable except LDH is uptrending Will order scan and labs to follow-up #2 chronic hepatitis Sophie is started on Entecavir 0.5 mg p.o. daily (03/13/2024) and advised to continue #3 hypertension Patient also have hypertension which is well-controlled advised to follow-up with primary care ORDERS: Order # Description [id number] PET/CT of Skull to mid-thigh for Restaging [id number] MD Follow Up 4 Week [id number] Iron Panel + Ferritin + Vitamin B-12 + Folic Acid; Serum [id number] Lactate Dehydrogenase (LDH) + Assay Of Haptoglobin Quant [id number] Follow Up Appointment [id number] Follow Up Appointment [id number] Follow Up Appointment [id number] Follow Up Appointment [id number] Follow Up Appointment [id number] Follow Up Appointment [id number] Follow Up Appointment [id number] Follow Up Appointment RETURN TO CLINIC: I reviewed the diagnosis, prognosis, and recommended treatment/procedure options with the patient (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 We also discussed the option of no treatment and the possibility of clinical trial participation, if applicable. All questions were addressed, and they demonstrated understanding. They provided informed consent to proceed with the proposed plan of care. BILLING AND COMPLIANCE: I reviewed external records from providers outside my specialty as summarized above. I spent a total of 50 minutes on this patient?s care on the day of their visit excluding time spent related to any billed procedures. This time includes time spent with the patient as well as time spent documenting in the medical record, reviewing patients records and tests, obtaining history, placing orders, communicating with other healthcare professionals, counseling the patient, family or caregiver, and/or care coordination for the diagnoses above. Electronically Signed by: Carmine Mejia MD T: 2:49 PM CC: PCP: Carmine Mejia Referring: Carmine Mejia This document was completed utilizing speech recognition software. Grammatical errors, random word insertions, pronoun errors, and incomplete sentences are an occasional consequence of this system due to software limitations, ambient noise, and hardware issues. Any formal questions or concerns about the content, text or information contained within the body of this dictation should be directly addressed to the provider for clarification.
== END 2025-08-30 23:59 | disposition home or self-care (01) ==
LOC: SCTC 13:07
PROVIDERS: PCP Physician Assistant; Referring Provider Internal Medicine Hematology & Oncology; Visit Provider Internal Medicine Hematology & Oncology
DX: Z51.11 Encounter for antineoplastic chemotherapy (principal); C82.11 Follicular lymphoma grade II, lymph nodes of head, face, and neck; K73.9 Chronic hepatitis, unspecified; I10 Essential (primary) hypertension
CPT/HCPCS: 36591; 80053; 83615; 84550; 85025; 96375; 96413; 96415; 99212; A4216; J1200; J1642; J7050; Q5115; A9270; G0463

== ENCOUNTER 2025-09-12 10:05 | Day surgery (SDC) | payer MEDICAID, SELFPAY ==
[2025-09-12] VITALS (9 sets, daily range): BP systolic 133–159; BP diastolic 70–80; PULSE 58–71; RESP 11–18; TEMP 36.3–36.7; O2SAT 94–100; BMI 29.2
[2025-09-12] MEDS: MIDAZOLAM INJ 1 MG/ML VIAL 2 ML (ASD USE ONLY) 2 MG IVP ×2 (12:46→12:55)
[2025-09-12] MEDS: RINGERS LACTATED 500 ML 500 ML 20 ML IV (12:46)
[2025-09-12] MEDS: fentaNYL CIT INJ 50 mCg/ML AMP 2ML (ASD USE ONLY) IVP (12:46)
== END 2025-09-12 13:45 | disposition home or self-care (01) ==
PROVIDERS: Referring Provider Urology; Visit Provider Internal Medicine Gastroenterology
PROC: 0DBE8ZX Excision of Large Intestine, Via Natural or Artificial Opening Endoscopic, Diagnostic (ICD-10-PCS; CPT 45380; principal; 2025-09-12 13:00)
DX: K64.9 Unspecified hemorrhoids (principal); I10 Essential (primary) hypertension; R10.84 Generalized abdominal pain; B16.9 Acute hepatitis B without delta-agent and without hepatic coma
CPT/HCPCS: 45378; A4649; J1200; J2250; J3010; J7120

== ENCOUNTER → 2025-09-24 | Outpatient (CLI) | payer MEDICAID, SELFPAY ==
--- NOTE | 2025-09-24 12:30 | XR_ITS ---
EXAMINATION: PET/CT FUSION SKULL TO THIGH EXAM DATE AND TIME: September 24, 2025, 1227 hours, comparison September 20, 2024 PET/CT, PET/CT D August 14, 2024 INDICATION: Diagnosis follicular lymphoma restaging post treatment CTDI:vol (mGy) 6.99 DLP: (mGycm) 638.29 PROCEDURE: 15.9 mCi FDG was administered intravenously To allow for distribution and uptake of radiotracer, the patient was allowed to rest quietly in a shielded room. Imaging was performed on an integrated 16-slice PET/CT scanner, with scanning from the skull base to the mid thigh. Serum blood glucose at the time of the injection was measured 130 mg/dL. CT scanning was performed without oral or intravenous contrast material. FINDINGS: Head and Neck: There is no mercy hypermetabolism in the neck. The visualized portions of the brain are normal in appearance on CT. Chest: There is no mercy hypermetabolism in the chest. There are no pulmonary nodules. Stable non-hypermetabolic high left para-aortic lymph node Abdomen and Pelvis: There is no mercy hypermetabolism in retroperitoneal or pelvic chains. The spleen is normal in size and FDG avidity. Stable subcentimeter periaortic lymph nodes Atrophic left kidney Musculoskeletal: Marrow uptake is within normal range. IMPRESSION: Stable PET/CT scan appearance compared with September 20, 2024 No interval hypermetabolic lymphadenopathy
== END | disposition home or self-care (01) ==
LOC: CDIM 11:24
PROVIDERS: PCP Physician Assistant; Referring Provider Internal Medicine Hematology & Oncology; Visit Provider Internal Medicine Hematology & Oncology
DX: C82.01 Follicular lymphoma grade I, lymph nodes of head, face, and neck (principal)
CPT/HCPCS: 78815; A9552

== ENCOUNTER → 2025-10-13 | Outpatient (CLI) | payer MEDICAID, SELFPAY ==
--- NOTE | 2025-10-13 15:00 | ECHO_ITS ---
Patient Info Name: Alia Barrios Age: 64 years : 1960 Gender: Female Ht: 157 cm Wt: 68 kg BSA: 1.75 m2 BP: 157 / 75 mmHg HR: 96 bpm Exam Date: 10/13/2025 2:11 PM Admit Date: 10/13/2025 Site: [facility] Room Number: OP Patient Status: P Exam Type: CA echo doppler complete Manager Net: Teresa Portillo Ordering Physician: Carmine Mejia Referring Physician: Carmine Mejia Study Info Indications Follicular lymphoma grade I, lymph nodes of head, face, and - Primary Location: SDIM Left Ventricular Outflow Tract Name Value Normal LVOT 2D LVOT Diameter 1.7 cm LVOT Doppler LVOT Peak Velocity 116 cm/s LVOT Mean Gradient 3 mmHg LVOT VTI 24 cm LVOT VTI/AV VTI Ratio 0.8 LVOT Stroke Volume 53 ml Pulmonic Valve Name Value Normal PV Doppler PV Peak Velocity 103 cm/s PV Regurgitation Doppler MT Peak End Diastolic Velocity 88 cm/s Mitral Valve Name Value Normal MV Doppler MV Decel [place] 265 cm/s2 MV PHT 56 ms MV Area (PHT) 3.9 cm2 4.0-5.0 MV Diastolic Function MV E Peak Velocity 51 cm/s MV A Peak Velocity 71 cm/s MV E/A 0.7 MV Annular TDI MV Septal e' Velocity 7.7 cm/s MV E/e' (Septal) 6.7 MV Lateral e' Velocity 6.7 cm/s MV E/e' (Lateral) 7.6 MV e' Average 7.23 cm/s MV E/e' (Average) 7.1 Tricuspid Valve Name Value Normal Estimated PAP/RSVP RA Pressure 3 mmHg <=5 TV Annular TDI TV Lateral Radha s' Velocity 13.1 cm/s >=9.5 Aortic Valve Name Value Normal AV 2D/MM AV Cusp Sep (MM) 1.4 cm AV Doppler AV Peak Velocity 126 cm/s AV Mean Gradient 3 mmHg AV VTI 29 cm AV Area (Cont Eq VTI) 1.8 cm2 >=3.0 AV Area (Cont Eq Herber) 2.1 cm2 AV DI (Herber) 0.92 AV Regurgitation 2D LVOT Area 2.3 cm2 Ventricles Name Value Normal LV Dimensions 2D/MM IVS Diastolic Thickness (2D) 0.8 cm 0.6-0.9 LVID Diastole (2D) 4.0 cm 3.8-5.2 LVIW Diastolic Thickness (2D) 1.1 cm 0.6-0.9 LVID Systole (2D) 2.7 cm 2.2-3.5 LVOT Diameter 1.7 cm LV Mass (2D Cubed) 118.23 g 67.00-162.00 LV Mass Index (2D Cubed) 68 g/m2 43-95 Relative Wall Thickness (2D) 0.55 <=0.42 IVS/LVIW Diastolic Thickness (2D) 0.73 0.00-1.50 LV Fractional Shortening/Ejection Fraction 2D/MM LV Fractional Shortening (2D) 33 % 27-45 LV EF (2D Teichholz) 61 % RV Dimensions 2D/MM TV Lateral Radha s' Velocity 13.1 cm/s >=9.5 Atria Name Value Normal LA Dimensions LA Volume (4C A-L) 14 ml Left Ventricle Left ventricular chamber dimension is normal. Left ventricular systolic function is normal with visually estimated ejection fraction of 60-65%. There is concentric remodeling noted in the left ventricle. Left ventricular segmental wall motion is normal. There is grade II diastolic dysfunction in the left ventricle. Right Ventricle Right ventricular chamber dimension is normal. Right ventricular systolic function is normal. Left Atrium Left atrial chamber dimension is normal. Right Atrium Right atrial chamber dimension is normal. Aortic Valve The aortic valve is trileaflet. There is no aortic valve sclerosis. There is no aortic valve stenosis with a peak velocity of 126 cm/s, mean gradient of 3 mmHg, and aortic valve area of 1.8 cm2. There is no aortic valve regurgitation. Pulmonic Valve The pulmonic valve is normal. There is no pulmonic valve stenosis. There is trace pulmonic regurgitation. Mitral Valve The mitral valve has normal leaflets. There is no mitral valve stenosis. There is trace mitral valve regurgitation. Tricuspid Valve The tricuspid valve leaflets are normal. There is no tricuspid valve stenosis. There is trace tricuspid valve regurgitation. Unable to estimate pulmonary artery systolic pressure due to inadequate tricuspid regurgitant envelope. Pericardium/Pleural The pericardium appears normal. There is no pericardial effusion. No pleural effusion visualized. Inferior Vena Cava Normal inferior vena cava with >50% collapse upon inspiration consistent with normal right atrial pressure, 3 mmHg. Aorta The aortic measurements are indexed to age and body surface area. The aortic root at the sinus of Valsalva is not well visualized. The prox ascending aorta is not well visualized. Summary 1. Left ventricle size is normal and systolic function is normal. Estimated ejection fraction is 60-65%. There is grade II diastolic dysfunction. 2. Right ventricle chamber size is normal and systolic function is normal. 3. Trace mitral, tricuspid, and pulmonic valve regurgitation noted. 4. The left atrium is normal. The right atrium is normal. 5. Normal IVC with estimated RA pressure 3 mmHg. Report Signatures Finalized by Quyen Louise on 10/13/2025 07:42 PM
== END | disposition home or self-care (01) ==
LOC: SDIM 10-17 07:48
PROVIDERS: PCP Physician Assistant; Referring Provider Internal Medicine Hematology & Oncology; Visit Provider Internal Medicine Hematology & Oncology
DX: I37.1 Nonrheumatic pulmonary valve insufficiency (principal); C82.01 Follicular lymphoma grade I, lymph nodes of head, face, and neck
CPT/HCPCS: 93306

== ENCOUNTER 2025-10-14 13:22 | Outpatient (RCR) | payer MEDICAID, SELFPAY ==
[2025-10-04 09:26] LABS: Basophils # (Auto) 0.0 Thou/mm3 (0.0-0.2); Basophils % (Auto) 1 % (0-2.5); Eosinophils # (Auto) 0.1 Thou/mm3 (0.0-0.5); Eosinophils % (Auto) 2 % (0-10); Hematocrit 40.3 % (36.0-46.0); Hemoglobin 13.7 g/dL (12.0-16.0); Immature Granulocytes Auto 0.05 Thou/mm3 (0.00-0.00); Lymphocytes # (Auto) 0.6 Thou/mm3 (1.0-4.8); Lymphocytes % (Auto) 17 % (10-50); Mean Corpuscular HGB Conc 34.0 g/dl (31.0-37.0); Mean Corpuscular Hemoglobin 28.9 pg (25.0-35.0); Mean Corpuscular Volume 85 fL (80-100); Monocytes # (Auto) 0.3 Thou/mm3 (0.0-0.8); Monocytes % (Auto) 9 % (0-12); Neutrophils # (Auto) 2.3 Thou/mm3 (1.8-7.7); Neutrophils % (Auto) 68 % (37-80); Nucleated Red Blood Cell # 0.00 Thou/mm3 (0.00-0.00); Nucleated Red Blood Cell % 0 /100 WBC (0); Platelet Count 171 Thou/mm3 (140-440); RDW Standard Deviation 37.9 fL (36.4-46.3); Red Blood Count 4.74 Miln/mm3 (4.00-5.20); White Blood Count 3.3 Thou/mm3 (3.6-11.0)
[2025-10-04 09:47] LABS: Ferritin 49 ng/mL (7.3-270.7); Iron 51 mcg/dL (50-170); Percent Iron Saturation 17 % (20-55); Total Iron Binding Capacity 287 mcg/dL (250-425); Unsaturated Iron Binding 236 (225-295)
[2025-10-04 09:48] LABS: Alanine Aminotransferase 28 U/L (10-49); Albumin, Serum 4.6 gm/dL (3.4-4.8); Albumin/Globulin Ratio 2.0 (1.2-2.2); Alkaline Phosphatase 99 U/L (46-116); Anion Gap 10 (7-16); Aspartate Amino Transferase 36 U/L (0-34); BUN/Creatinine Ratio 15 Ratio (12-20); Bilirubin,Total 0.6 mg/dL (0.3-1.2); Blood Urea Nitrogen 12 mg/dL (9-23); Calcium 9.3 mg/dL (8.3-10.6); Calcium (Corrected) 9.3 mg/dL (8.5-10.1); Carbon Dioxide 27.5 mMol/L (20.0-31.0); Chloride 107 mMol/L (98-107); Creatinine (Component) 0.8 mg/dL (0.6-1.3); Folate 12.81 ng/mL (>5.38); Globulin 2.3 gm/dL (2.3-3.5); Glucose 149 mg/dL (74-106); LDH (Lactate Dehydrogenase) 248 U/L (120-246); Osmolality,Calculated 289 (275-295); Potassium 3.8 mMol/L (3.4-5.1); Sodium 144 mMol/L (136-145); Total Protein 6.9 gm/dL (5.7-8.2); Uric Acid 5.8 mg/dL (3.1-7.8); Vitamin B12 1007 pg/mL (211-911); eGFR > 60 See Note
[2025-10-10 06:33] LABS: Haptoglobin* 164 mg/dL (43-212)
--- NOTE | 2025-10-14 15:04 | CTCFLWUP_ITS ---
Patient: ALIA BARRIOS : 1960 Page 7 of 9 FOLLOW UP NOTE DATE OF SERVICE: 10/14/2025 NAME: ALIA BARRIOS ACCOUNT: [id number] : 1960 AGE: 64 INTERVAL HISTORY: Patient is complaining of pain in her joints as well as neuropathic pain in her toes. Patient takes Sherman and pain gets well-controlled. Patient ran out of her medicine about a month ago. Patient also requesting prescription for Tylenol which she likes to take before she takes Sherman. Patient do not take more than 2 tablets of Sherman a day. Medications and Supplements - Rituximab - Received on April 01. Third treatment out of planned 12. - No reported reactions or problems. - Administered every 2 months. - Tequivir - For liver. Review of Systems Hematological/Lymphatic: Negative for new bleeding or bruising. HEENT: Negative for new swelling in the neck. Objective: Laboratory, Imaging, and Diagnostic Test Results - Imaging: - Scan of Ryan: Normal functioning - Previous results: - Rituximab treatment: Administered on April 01, 2025 (3rd treatment) ONCOLOGY HISTORY: DIAGNOSIS: Follicular lymphoma grade I, nodes of head, face, and neck [ICD10] C82.01 DATE OF DIAGNOSIS: 12/21/2023 STAGE/TNM: Low grade follicular lymphoma TREATMENT HISTORY: Care?Plan Start?Date Cycle Day Intent Rituxan?375?+?Bendamustine?90?Leah 03/28/2024 1 28 Palliative Rituximab?375mg/m*2?maint?q?2month 11/26/2024 1 60 Maintenance HISTORY OF PRESENT ILLNESS: Alia Barrios is a 64-year-old ENG speaking female with following oncology history. Ms. Barrios started noticing a small lump growing on the right side of the neck about 8 months ago. She also noticed about 22 pound weight loss in the past 3 months. She also complains of occasional night sweats. Denies any fevers. Complains of discomfort in the right side of the neck. Does have right lower quadrant discomfort. Recently she had fine-needle aspiration on 12/21/2023 02/13/2024: PET/CT scan? 02/14/2024: CT scan of the chest abdomen and pelvis with IV contrast done 02/23/2024: Hepatitis panel? 02/27/2024: Hepatitis B viral load 03/13/2024: Ms. Barrios is started on Entecavir 0.5 mg p.o. daily 03/28/2024: Ms. Barrios received first cycle of Bendamustine and rituximab 06/14/2024: PET/CT scan? 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 Tobacco?Pack?per?Day:?0 Tobacco?Use:?Denies ETOH?Use:?Denies Drug?Note:?Denies Social?History?Note:?Lives?with?sister FISH PITCHER HISTORY: Menarche?-?Age:?14 Menopause:?1999 :?3 Live?Births:?3 Age?1st?:?17 MEDICATIONS: 1. calcium carbonate-vitamin D3 - 1,000 mg-20 mcg (800 unit) 1 tab Daily 2. entecavir - 0.5 mg 1 tab Daily 3. hydrocodone-acetaminophen - 5-325 mg 1 tab twice a day 4. Lexapro - 5 mg 1 tab Daily 5. metFORMIN - 500 mg 1 tab Daily 6. simvastatin - 40 mg 1 tab Daily 7. verapamiL - 80 mg 1 tab Daily 8. Vicodin - 5-500 mg 1 tab every 12 hrs Medications Last Reconciled by Clarita Desouza MD on 10/14/2025 ALLERGIES: No Known Allergies; No Known Drug Allergies REVIEW OF SYSTEMS: A complete 14-point review of systems was performed and is negative except as noted in interval history. PHYSICAL EXAMINATION: VITAL SIGNS: Temperature?97.6, B/P?176/78, Oxygen?Saturation?95% Weight?151?lbs (Change?since?10/07/25:?-1.8?lbs) PAIN: 2 - Mild pain ECOG Performance Status: 1 - Symptomatic; ambulatory; restricted in strenuous activity GENERAL APPEARANCE: Appears well, in no apparent distress, appropriately interactive. HEENT: Normocephalic, no temporal wasting, normal conjunctiva, no scleral icterus, normal hearing, lips without lesions, neck normal range of motion. CARDIOVASCULAR: Not assessed. PULMONARY: Normal respiratory effort, no respiratory distress or use of accessory muscles, speaking in full sentences, no tachypnea. EXTREMITIES: No pedal edema or cyanosis. SKIN: Normal skin appearance. NEUROLOGIC: Alert and oriented x4. PSHYCHIATRIC: Appropriate affect, mood normal, behavior normal, intact thought and speech. LABORATORY DATA: I have personally reviewed and interpreted each of the patient?s relevant lab tests, abnormal findings are below: Date 10/04/25 ??WHITE?BLOOD?COUNT?(Thou/mm3) 3.3?L ??RED?BLOOD?COUNT?(Miln/mm3) 4.74 ??HEMOGLOBIN?(gm/dl) 13.7 ??HEMATOCRIT?(%) 40.3 ??PLATELET?COUNT?(Thou/mm3) 171 ??NEUTROPHILS?%,?AUTO?(%) 68 ??LYMPH?%,?AUTO?(%) 17 ??NEUTROPHILS,?AUTO?(Thou/mm3) 2.3 ??GLUCOSE,RANDOM?(mg/dL) 149?H ??BLOOD?UREA?NITROGEN?(mg/dL) 12 ??CREATININE?(mg/dL) 0.80 ??SODIUM?(mmol/L) 144 ??POTASSIUM?(mmol/L) 3.8 ??CHLORIDE?(mmol/L) 107 ??CrCl?(CandG)?(ml/min) 66.98 ??AST/SGOT?(Unit/L) 36?H ??ALT/SGPT?(Unit/L) 28 ??ALKALINE?PHOSPHATASE?(Unit/L) 99 ??BILIRUBIN,?TOTAL?(mg/dL) 0.6 ??PROTEIN?TOTAL?(gm/dl) 6.9 ??ALBUMIN,?SERUM?(gm/dl) 4.6 ??GLOBULIN?(gm/dl) 2.3 ??ALBUMIN/GLOBULIN?RATIO 2.0 ??CALCIUM,?SERUM?(mg/dL) 9.3 ??CALCIUM?SERUM?(CORRECTED)?(mg/dL) 9.3 ??LDH,?TOTAL?(Unit/L) 248?H ??TOTAL?IRON?BINDING?CAP?(S*)?(mcg/dL) 287 ??UNBOUND?IBC?(mcg/dL) 236 ASSESSMENT/PLAN: Follicular lymphoma Patient was very symptomatic with 30 pound weight loss and lymphadenopathy at the time of diagnosis. Patient's stable weight is at 145 pounds. Patient completed chemotherapy with Bendamustine rituximab She is on rituximab every 2 months for total of [address] scan and echocardiogram and are stable Continue rituximab Pain medications renewed Patient advised to take only 1 tablet of Sherman a day so we can taper her off. Patient is given 1 tablet every 12 hours for severe pain patient can use Tylenol if her pain is mild to moderate Follow-up with Dr. Chiu for pain management every 2 months #2 chronic hepatitis Sophie is started on Entecavir 0.5 mg p.o. daily (03/13/2024) and advised to continue #3 hypertension Patient also have hypertension which is well-controlled advised to follow-up with primary care ORDERS: Order # Description [id number] Follow Up Appointment [id number] Follow Up Appointment [id number] Follow Up Appointment [id number] Follow Up Appointment [id number] Follow Up Appointment [id number] Follow Up Appointment [id number] Follow Up Appointment RETURN TO CLINIC: I reviewed the diagnosis, prognosis, and recommended treatment/procedure options with the patient (and/or their legal membership sales representative), including the potential benefits, risks, side effects and alternative therapies. We also discussed the option of no treatment and the possibility of clinical trial participation, if applicable. All questions were addressed, and they demonstrated understanding. They provided informed consent to proceed with the proposed plan of care. BILLING AND COMPLIANCE: I reviewed external records from providers outside my specialty as summarized above. I spent a total of 50 minutes on this patient?s care on the day of their visit excluding time spent related to any billed procedures. This time includes time spent with the patient as well as time spent documenting in the medical record, reviewing patients records and tests, obtaining history, placing orders, communicating with other healthcare professionals, counseling the patient, family or caregiver, and/or care coordination for the diagnoses above. Electronically Signed by: Carmine Mejia MD T: 3:01 PM CC: PCP: Alyse Cook Referring: Alyse Cook This document was completed utilizing speech recognition software. Grammatical errors, random word insertions, pronoun errors, and incomplete sentences are an occasional consequence of this system due to software limitations, ambient noise, and hardware issues. Any formal questions or concerns about the content, text or information contained within the body of this dictation should be directly addressed to the provider for clarification.
== END 2025-10-30 23:59 | disposition home or self-care (01) ==
LOC: SCTC 13:22
PROVIDERS: PCP Physician Assistant; Referring Provider Physician Assistant; Visit Provider Internal Medicine Hematology & Oncology
DX: Z51.11 Encounter for antineoplastic chemotherapy (principal); C82.11 Follicular lymphoma grade II, lymph nodes of head, face, and neck; K73.9 Chronic hepatitis, unspecified; I10 Essential (primary) hypertension
CPT/HCPCS: 36591; 80053; 82607; 82728; 82746; 83010; 83540; 83550; 83615; 84550; 85025; 96375; 96413; 96415; 99212; A4216; J1200; J1642; J7050; Q5115; A9270; G0463